=== PATIENT | male | born 2000 | race Caucasian/White ===

== ENCOUNTER 2020-05-06 00:15 | Emergency (ER) | payer OTHER ==
[~2020-05-06] VITALS: Ht 172.7 cm; Wt 63.5 kg
--- NOTE | 2020-05-06 00:15 | NUR ---
PT IN WHEELCHAIR TO ER BED 04
[2020-05-06 00:17] VITALS: BP 125/71
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
[2020-05-06 00:41] LABS: BASOPHILS # (AUTO) 0.1 K/uL (0.00-0.22); BASOPHILS % (AUTO) 0.6 % (0.0-2.0); EOSINOPHILS % (AUTO) 0.1 % (0.0-4.0); HEMOGLOBIN 14.1 g/dL (12.0-18.0); LYMPHOCYTES # (AUTO) 2.7 K/uL (2.0-11.5); LYMPHOCYTES % (AUTO) 21.5 % (20.5-51.1); MEAN CORPUSCULAR HEMOGLOBIN 30 pg (27-31); MEAN CORPUSCULAR HGB CONC 33 g/dL (33-37); MEAN CORPUSCULAR VOLUME 91.3 fL (80-94); MONOCYTES # (AUTO) 0.5 K/uL (0.8-1.0); MONOCYTES % (AUTO) 4.2 % (1.7-9.3); NEUTROPHILS # (AUTO) 9.1 K/uL (1.8-7.7); NEUTROPHILS % (AUTO) 73.6 % (42.2-75.2); PLATELET COUNT (AUTO) 213 K/uL (140-450); WHITE BLOOD COUNT (AUTO) 12.4 K/uL (4.5-11.0)
[2020-05-06] MEDS ORDERED: NACL 0.9% 1,000 ML IV ONE (00:45)
[2020-05-06 00:56] LABS: ALBUMIN 4.7 g/dL (3.4-5.0); ANION GAP 19.8 (8-16); CARBON DIOXIDE 23.1 mmol/L (21-32); CREATININE 1.1 mg/dL (0.6-1.3); TOTAL BILIRUBIN 0.4 mg/dL (0.0-1.0)
--- NOTE | 2020-05-06 01:02 | NUR ---
PT TAKEN TO CT
[2020-05-06 01:04] LABS: POTASSIUM 2.9 mmol/L (3.5-5.1)
--- NOTE | 2020-05-06 01:04 | NUR ---
CRITICAL LAB VALUE OF POTASSIUM 2.9. KENYETTA SINGH MADE AWARE.
[2020-05-06] MEDS ORDERED: POTASSIUM CHL 40 MEQ/ D5-1/2NS 1,000 ML IV ONE (01:05)
--- NOTE | 2020-05-06 01:30 | NUR ---
K-RIDER STARTED ON PT. TOLERATED WELL. NADR
[2020-05-06] MEDS ORDERED: ONDANSETRON 4 MG/2 ML VIAL IVP ONE (03:40)
--- NOTE | 2020-05-06 03:45 | NUR ---
PT MEDICATED WITH ZOFRAN IVP. TOLERATED WELL. JAMESR
--- NOTE | 2020-05-06 03:45 | NUR ---
3 episodes of vomiting. KENYETTA SINGH MADE AWARE OF PT STATUS.
[2020-05-06 04:58] VITALS: BP 130/81
--- NOTE | 2020-05-06 05:00 | NUR ---
Patient discharged with v/s stable. Written and verbal after care instructions given and explained. Patient verbalized understanding. Ambulatory with steady gait. All questions addressed prior to discharge. Advised to follow up with PMD.Pt d/c by Rony BRUSH with the aci given and pt verbalizes understanding. Pt walks in steady gait.
--- NOTE | 2020-05-08 09:14 | NUR ---
LATE ENTRY- NORMAL SALINE 0.9% IV FLUIDS DISCONTINUED AT 0500. DEXTROSE 5%-NACL 0.45%-KCL 40MEQ DISCONTINUED AT 0500.
== END 2020-05-06 05:00 | disposition home or self-care (01) ==
LOC: MED 00:15
DX: R41.82 Altered mental status, unspecified (principal); F10.129 Alcohol abuse with intoxication, unspecified
CPT/HCPCS: 36415; 70450; 80053; 85025; 96361; 96365; 96366; 96375; 99284; G0482; J2405; J7030